=== PATIENT | male | born 1995 | race American Indian/Alaskan Native ===

== ENCOUNTER 2016-05-13 08:10 | Day surgery (SDC) | payer OTHER ==
--- NOTE | 2016-05-13 09:09 | Anesthesia Day of Surgery ---
Anesthesia Day of Surgery - Day of Surgery Patient Examined: Yes Patient H&P Reviewed: Yes Patient is NPO: Yes
--- NOTE | 2016-05-13 09:09 | Anesthesia Consultation ---
Anesthesia Consult and Med Hx Date of service: 05/13/16 - Airway Anesthetic Teeth Evaluation: Good ROM Head & Neck: Adequate Mental/Hyoid Distance: Adequate Mallampati Class: Class I Intubation Access Assessment: Good - Pulmonary Exam CTA: Yes - Cardiac Exam Cardiac Exam: RRR - Pre-Operative Health Status ASA Pre-Surgery Classification: ASA2 Proposed Anesthetic Plan: MAC - Pulmonary Hx Smoking: Yes (STATES CIGARETTES SOMETIMES) Hx Sleep Apnea: No - Central Nervous System Hx Psychiatric Problems: No - Hematic Hx Anemia: No - Other Systems Hx Cancer: No
[2016-05-13] MEDS ORDERED: TETRACAINE 0.5% OD PRN (09:15)
[2016-05-13] MEDS: VIGAMOX OD SCH ×3 (09:30→09:40)
[2016-05-13] MEDS: AK-Dilate OD SCH ×3 (09:30→09:40)
[2016-05-13] MEDS: MYDRIACYL 1% OD SCH ×3 (09:30→09:40)
[2016-05-13] MEDS ORDERED: NACL BACTERIOSTATIC INFILTRATI ONE (09:33)
[2016-05-13] MEDS ORDERED: VERSED ONE (11:06)
[2016-05-13] MEDS ORDERED: SUBLIMAZE ONE (11:07)
[2016-05-13] MEDS ORDERED: NACL P/F VIAL (10 ML) 10 ML ONE (11:08)
[2016-05-13] MEDS ORDERED: VISION BLUE IO ONE (11:27)
[2016-05-13] MEDS ORDERED: ADRENALIN IR ONE (11:32)
[2016-05-13] MEDS ORDERED: MIOSTAT OD ONE (11:40)
--- NOTE | 2016-05-13 12:09 | Operative Report ---
Operative Report Operative Report: PATIENT'S NAME: DATE OF : DATE OF SURGERY: 05/13/2016 PREOPERATIVE DIAGNOSIS: Cataract hypermature cataract right eye POSTOPERATIVE DIAGNOSIS: Same OPERATIVE PROCEDURE: Phacoemulsification with intraocular lens implantation, with trypan blue right eye SURGEON: Martha Hilton M.D. SHOVEL OILER SURGEON: None Lens: AO60 11.5 D ANESTHESIA: Monitored anesthesia care in combination with topical and intracameral anesthesia because of the established specific risk of reflux, arrhythmias, or anxiety attacks associated with ocular manipulation, as well as the difficulty of the laminating machine operator helper to manage such potentially catastrophic events while simultaneously attempting to complete the surgical procedure and was deemed necessary for the patient's safety to have an Hand Tube Winder present during the procedure whenever possible. An Hand Tube Winder was utilized to regulate the intravenous sedation of the patient so the patient was cooperative yet not asleep in order for the patient to successfully maintain fixation of the eye on the operating light of the microscope. COMPLICATIONS: [No surgical complications] No blood loss. ALLERGIES: [No known drug allergies] PROGNOSIS: Excellent INDICATIONS FOR SURGERY: The patient is undergoing surgery in the hopes of eliminating or improving these visual difficulties. PROCEDURE: After arriving at the surgery center, the patient was given topical anesthetic and dilating drops, as noted in the record. The patient was then taken into the operating room and given more anesthetic drops. The eyelids , lashes, and lid margins were scrubbed with Betadine solution, and the patient was draped. The Nurse Hand Tube Winder administered IV sedation and monitored the patient during the procedure. The eye was then fixated with a 0.12, and a stab incision was made in the peripheral clear cornea into the anterior chamber. Because of the nature of the cataract and poor visualization of the anterior capsule, it was decided that a dye should be used to stain the capsule for better visualization of the capsule during the capsulorrhexis. After the Xylocaine was injected into the eye and prior to placing viscoelastic into the eye, air was injected through the stab incision and used to fill the anterior chamber. Then a cannula was inserted into the stab incision and VisionBlue dye was irrigated over the anterior capsule of the natural lens allowing the entire anterior lens capsule to be coated with the dye. The viscoelastic was next place in the eye as noted above and as this was done, the air was pushed out through the stab incision. The capsule remained colored from the dye and this allowed good visualization of the capsule tear as it progressedThis was made on my left side. Viscoelastic was next used to fill the anterior chamber. The eye was once again fixated with the 0.12 forceps and a keratome was used make an incision in clear cornea peripherally on my right hand side temporally. The capsule forceps were used to open the central anterior capsule and then make a continuous round capsulotomy. It was very difficult because of how rubbery the capsule was as well as because the lens provided to counter weight. The capsule had to be cut with Vannas scissors Hydrodissection was carried out utilizing a cannula and balanced salt solution to delineate the cortical material from the capsule and the nucleus from the cortical material. The phaco tip was introduced into the eye and used to remove the anterior cortical material in the area of the capsulotomy. Then the phaco tip was buried into the nucleus, and a chopping instrument was introduced into the eye and used to provide countertraction in the nucleus between this instrument and the phaco tip fracturing the nucleus. This procedure was repeated multiple times, providing multiple small segments of the lens, and then the phaco tip was used to remove each of these segments. An I/A tip was then used to remove the remaining cortex. The anterior chamber was refilled with viscoelastic. An one-piece, acrylic intraocular lens was then placed into an inserting cartridge. The tip of the inserting cartridge was introduced into the keratome incision and into the anterior chamber. The implant was gently advanced through the cartridge and into the eye, where it unfolded, and both haptics were placed in the capsular bag, where it centered nicely and appeared to be well fixated. After placement of the intraocular lens, the I~and~A handpiece was placed back into the eye and used to remove the viscoelastic, including viscoelastic that was behind the optic of the intraocular lens. The anterior chamber was then filled with balanced salt solution, and hydration of the wound was used to cause swelling of the wound and more appropriate watertight closure. Miostat was injected. When the wound was found to be firm, the patient was asked to comment on how bright the light was. If there was no light perception at all or if the light was substantially dimmer than during the rest of the surgery, the amount of fluid in the eye was decompressed to lower the intraocular pressure until the patient could see the bright light again. This was done to avoid any damage or decreased blood flow to the optic nerve. MEDICATIONS APPLIED AT END OF SURGERY: One drop of Pred Forte and Vigamox The patient was given a shield to wear at night and was instructed not to rub or push on the eye. DISCHARGE SUMMARY: The patient was released in stable condition. The patient and those with the patient were given a written sheet of postoperative instructions and counseling on any abnormal laboratory studies. The patient is to see us tomorrow for follow-up in the office and is to call immediately for any difficulties. Martha Hilton M.D. Date
--- NOTE | 2016-05-13 12:11 | Short Stay Summary ---
Short Stay Documentation Date of service: 05/13/16 - History H&P: obtained from office - Allergies and Medications Current Medications: Allergies No Known Allergies Allergy (Verified 05/13/16 09:22) Active Medications Moxifloxacin HCl (Vigamox) 1 drops OD Q5MIN [facility] Stop: 05/15/16 09:16 Last Admin: 05/13/16 09:40 Dose: 1 drops Phenylephrine HCl (Ak-Dilate) 1 drops OD Q5M [facility] Last Admin: 05/13/16 09:40 Dose: 1 drops Prednisolone Acetate (Pred Forte 1%) 1 drops OD QID [facility]IE Tetracaine HCl (Tetracaine 0.5%) 1 drops OD Q5M PRN PRN Reason: Analgesia Last Admin: 05/13/16 09:30 Dose: 1 drops Tropicamide (Mydriacyl 1%) 1 drops OD Q5MIN [facility] Stop: 05/15/16 09:16 Last Admin: 05/13/16 09:40 Dose: 1 drops - Brief post op/procedure progress note Date of procedure: 05/13/16 Pre-op diagnosis: white cataract right eye Post-op diagnosis: same Procedure: Emulsification with intraocular lens insertion right eye Anesthesia: MAC Surgeon: CEDRICK MOROCHO Estimated blood loss: none Pathology: none Condition: stable - Disposition Condition at discharge: Good Disposition: DISCHARGED TO HOME OR SELFCARE - Discharge Diagnoses (1) Hypermature cataract Status: Resolved
--- NOTE | 2016-05-13 12:14 | Post Anesthesia Evaluation ---
- Post Anesthesia Evaluation Patient Participated: Yes Airway Patent: Yes Stable Respiratory Function: Yes Temp > 96.8F: Yes Pain Manageable: Yes Adequeate Hydration: Yes Anesthesia Complications: No Block Receding Appropriately: Not Applicable
[2016-05-13] MEDS ORDERED: TYLENOL #3 PO ONE (12:18)
[2016-05-13] MEDS ORDERED: PRED FORTE 1% OD SCH (14:00)
[2016-05-13 14:37] VITALS: BP 122/70
== END 2016-05-13 12:35 | disposition home or self-care (01) ==
LOC: OR 08:10
DX: H25.21 Age-related cataract, morgagnian type, right eye (principal); F17.210 Nicotine dependence, cigarettes, uncomplicated
CPT/HCPCS: 66982; J0171; J2250; J3010; V2632